=== PATIENT | male | born 1970 ===

== ENCOUNTER 2017-02-18 00:08 | Emergency (ER) | payer OTHER ==
--- NOTE | 2017-02-18 00:29 | C.PDOC ---
History Of Present Illness Patient presents to the emergency room with complaints of a prolonged erection after being injected into the corpi by Dr. Alvarado around 2pm today. Patient reports that the erection has not subsided and was sent to the ER by Dr. Alvarado. Patient denies any other complaints. Time Seen by Provider: 02/18/17 00:25 Chief Complaint (Nursing): Male Genitourinary History Per: Patient History/Exam Limitations: no limitations Onset/Duration Of Symptoms: Hrs (9) Current Symptoms Are (Timing): Still Present Severity: Moderate Pain Scale Rating Of: 5 Quality Of Discomfort: Other (Discomfort) Associated Symptoms: denies: Fever, Nausea, Vomiting Alleviating Factors: None Recent travel outside of the [place]: No Past Medical History Reviewed: Historical Data, Nursing Documentation, Vital Signs Vital Signs: Last Vital Signs Temp 98.0 F 02/18/17 00:12 Pulse 92 H 02/18/17 00:12 Resp 16 02/18/17 00:12 BP 173/103 H 02/18/17 00:12 Pulse Ox 98 02/18/17 01:15 - Medical History PMH: HTN, End Stage Renal Disease Family History: States: Unknown Family Hx - Social History Hx Alcohol Use: No Hx Substance Use: No - Immunization History Hx Tetanus Toxoid Vaccination: No Hx Influenza Vaccination: No Hx Pneumococcal Vaccination: No Review Of Systems Constitutional: Negative for: Fever, Chills Gastrointestinal: Negative for: Nausea, Vomiting, Diarrhea Musculoskeletal: Positive for: Other (Prolonged erection) Physical Exam - Physical Exam Appears: Non-toxic Skin: Warm, Dry, No Rash Male Genital: Other (Penis is erect.) Extremity: Normal ROM, No Tenderness Neurological/Psych: Oriented x3, Normal Speech ED Course And Treatment O2 Sat by Pulse Oximetry: 98 Pulse Ox Interpretation: Normal Progress Note: Case discussed with Dr. Danny Alvarado, who will evaluate the patient in the ER. ice pack applied as well as pain control. pt was injected by dr alvarado Reevaluation Time: 02:35 Reassessment Condition: Improved Disposition Counseled Patient/Family Regarding: Studies Performed, Diagnosis, Need For Followup - Disposition Referrals: Danny Alvarado MD [Staff Provider] - Disposition: HOME/ ROUTINE Disposition Time: 00:29 Condition: FAIR Instructions: Priapism (ED) - Clinical Impression Clinical Impression: Priapism, drug-induced - Scribe Statement The provider has reviewed the documentation as recorded by the Scribe Irineo Rodriguez Provider Periibe Attestation: All medical record entries made by the Periibe were at my direction and personally dictated by me. I have reviewed the chart and agree that the record accurately reflects my personal performance of the history, physical exam, medical decision making, and the department course for this patient. I have also personally directed, reviewed, and agree with the discharge instructions and disposition.
[2017-02-18] MEDS ORDERED: Oxycodone/Acetaminophen 5/325 mg Tab PO STA (00:49)
[2017-02-18] MEDS ORDERED: Oxycodone/Acetaminophen 5/325 mg Tab ONE (00:51)
[2017-02-18] MEDS ORDERED: Morphine 4 MG/ML VIAL ONE (01:29)
[2017-02-18] MEDS ORDERED: Phenylephrine 30 MG in Dextrose 5% In Water 250 ML IV PRN (01:34)
[2017-02-18] MEDS ORDERED: PHENYLEPHRINE IV ONE ×2 (01:45→02:00)
[2017-02-18] MEDS ORDERED: SODIUM CHLORIDE 0.9% IV ONE ×2 (01:45→02:00)
[2017-02-18 02:45] VITALS: RESP 20
[2017-02-18 02:46] VITALS: BP 154/101; PULSE 90; TEMP 98.1; O2SAT 99
--- NOTE | 2017-03-03 08:55 | OP ---
PROCEDURE DATE: 02/18/2017 BEDSIDE OPERATIVE PROCEDURE The patient is a very pleasant gentleman who presents here to the Emergency Room at my recommendation and instructions. See the separately dictated consult note. Previously, he had received prostaglandin from me. He actually received something called ne Salcedo ch is prostaglandin, papaverine and phentolamine, in the standard dose which I give to several people , but I give the patients instructions that if they do not detumescence in a timely fashion that they must call me, which he has done now. He has a painful erection. I have instructed the patient to p resent to the ER. In the ER, the patient has a confirmed erection. After discussing options with th e patient, we were doing the procedure. PREOPERATIVE DIAGNOSIS: Priapism. POSTOPERATIVE DIAGNOSIS: Priapism. PROCEDURE: Detumescence procedure with injection of phenylephrine. COMPLICATIONS: None. The patient is being monitored here in the Emergency Room. We explained to the patient carefully wha t I was planning to do. I used the largest for needle that is available here, which happens to be 18 gauge Angiocath. I inje cted at the base of the penis and the corpora. I removed blood with a syringe. After the initial ne edle, of course, we used just a plastic Angiocath. We drained out the fluid. We use phenylephrine b etween 250-500 mcg until the patient is detumesced. The patient tolerates this procedure well without complication. I observed the patient for a few min utes afterwards to make sure that it did not return. We wrapped the penis with a dressing. The patient tolerated the procedure without complication. ADDENDUM #1: He is going to go home on Motrin. ADDENDUM #2: I subsequently spoke to the patient. He had no further difficulty. Geoff Alvarado MD cc: [id number] TT: 03/03/2017 08:55:15 cj
--- NOTE | 2017-03-03 09:14 | CON ---
DATE: 02/18/2017 SUBJECTIVE: The patient is a very pleasant gentleman I know well. In fact, I saw him earlier. We had discussed a medication called TriMix. TriMix is used for erectile dysfunction. It includes pr ostaglandin, papaverine, and phentolamine. The patient was given that medication. Still has a persistent erection. On my instruction the patient was sent here to the Emergency Room for further evaluation and treatmen t. In fact, see the separately dictated procedure note. Where I injected phenylephrine to detumesce the patient. The patient's baseline has erectile dysfunction. PAST MEDICAL AND SURGICAL HISTORY: As listed on the chart. From a urology standpoint, no other interim changes. PHYSICAL EXAMINATION: GENERAL: Well-nourished male in no apparent distress. VITAL SIGNS: Within normal limits. GENITOURINARY: The glans penis is not quite as firm as the rest of the corpora. There is a firm erection throughout. There are no other testicular masses or the like. Other than the indicated above history where the patient received prostaglandin, no other history is significant here. See the separately dictated note where we did a detumescence we injected phenylephrine until the graham ent was detumesced properly. The patient tolerated the procedure well. UROLOGY DIAGNOSIS: Priapism. The patient is currently clinically detumesced. He will be discharged home in a timely fashion. See the separately dictated procedure. Geoff Alvarado MD cc: [id number] TT: 03/03/2017 08:23:14 Confirmation # [id number] Dictation # [id number] pricila
== END 2017-02-18 02:52 | disposition home or self-care (01) ==
LOC: C.ER 00:08
DX: N48.30 Priapism, unspecified (principal)
CPT/HCPCS: 54220; 96372; 96374; 96376; 99284; J2270; J2370

== ENCOUNTER 2017-04-03 12:07 | Emergency (ER) | payer OTHER ==
[2017-04-03 12:16] VITALS: TEMP 97.9; O2SAT 100
[2017-04-03] MEDS ORDERED: Oxycodone/Acetaminophen 5/325 mg Tab PO STA (12:36)
--- NOTE | 2017-04-03 12:36 | C.PDOC ---
History Of Present Illness A 46 y/o male presents to the ER c/o prolonged erection since midnight. Pt notes injecting Viagra and had intercourse, but the erection prolonged afterwards. Pt denies penile discharge or bleeding, dysuria, nausea, vomiting, or any other complaints. Pt has a history of a similar episode that occurred 2 months prior and was evaluated by Dr. Alvarado. Time Seen by Provider: 04/03/17 12:29 Chief Complaint (Nursing): Male Genitourinary History Per: Patient History/Exam Limitations: no limitations Onset/Duration Of Symptoms: Hrs Current Symptoms Are (Timing): Still Present Severity: Mild Associated Symptoms: denies: Nausea, Vomiting Recent travel outside of the [place]: No Additional History Per: Patient Past Medical History Reviewed: Historical Data, Nursing Documentation, Vital Signs Vital Signs: Last Vital Signs Temp 97.9 F 04/03/17 12:11 Pulse 84 04/03/17 15:20 Resp 16 04/03/17 15:20 BP 200/96 H 04/03/17 15:20 Pulse Ox 100 04/03/17 16:56 - Medical History PMH: HTN, End Stage Renal Disease (MWF) Family History: States: Unknown Family Hx - Social History Hx Alcohol Use: No Hx Substance Use: No - Immunization History Hx Tetanus Toxoid Vaccination: No Hx Influenza Vaccination: No Hx Pneumococcal Vaccination: No Review Of Systems Except As Marked, All Systems Reviewed And Found Negative. Gastrointestinal: Negative for: Nausea, Vomiting Genitourinary: Positive for: Other (Penile erection). Negative for: Dysuria, Hematuria, Penile Discharge Physical Exam - Physical Exam Appears: Well, Non-toxic, No Acute Distress Skin: Warm, Dry Head: Atraumatic, Normacephalic Eye(s): bilateral: Normal Inspection, EOMI Nose: Normal Oral Mucosa: Moist Chest: Symmetrical Cardiovascular: Rhythm Regular, No Murmur Respiratory: Normal Breath Sounds, No Rales, No Rhonchi, No Wheezing Male Genital: No Scrotal Swelling, Other (Penile erection) Neurological/Psych: Oriented x3, Normal Speech, Other (No focal deficit) ED Course And Treatment O2 Sat by Pulse Oximetry: 100 (RA) Pulse Ox Interpretation: Normal Progress Note: Impression: 46 y/o c/o prolonged erection since midnight. Plans : OxyCODONE, Ice to area. Dr. alvarado was called at 12:45. Pt was seen and evaluated by Dr Alvarado at 330 pm who preformed drainage and injection. Patient is resting comfortably, and is in no acute distress. Patient was instructed to follow up with PMD in 1-2 days for further evaluation. Disposition - Disposition Referrals: Danny Alvarado MD [Staff Provider] - Disposition: HOME/ ROUTINE Disposition Time: 16:53 Condition: STABLE Additional Instructions: Follow up with Dr Alvarado in 1-2 days. Return to ER if symptoms persist or worsen. Prescriptions: Ibuprofen [Motrin] 600 mg PO Q6 PRN #20 tab PRN Reason: Pain, Mild (1-3) Instructions: Priapism (ED) - Clinical Impression Clinical Impression: Priapism, drug-induced - Scribe Statement The provider has reviewed the documentation as recorded by the Scribe Davy witt All medical record entries made by the Scribe were at my direction and personally dictated by me. I have reviewed the chart and agree that the record accurately reflects my personal performance of the history, physical exam, medical decision making, and the department course for this patient. I have also personally directed, reviewed, and agree with the discharge instructions and disposition.
[2017-04-03] MEDS ORDERED: Oxycodone/Acetaminophen 5/325 mg Tab ONE (12:44)
[2017-04-03 15:20] VITALS: BP 200/96; PULSE 84; RESP 16
[2017-04-03] MEDS ORDERED: Phenylephrine 30 MG in Sodium Chloride 0.9% 250 ML IV PRN (15:37)
[2017-04-03] MEDS ORDERED: PHENYLEPHRINE IR ONE (16:00)
[2017-04-03] MEDS ORDERED: SODIUM CHLORIDE 0.9% IR ONE (16:00)
== END 2017-04-03 17:08 | disposition home or self-care (01) ==
LOC: C.ER 12:07
DX: N48.33 Priapism, drug-induced (principal); T46.7X5A Adverse effect of peripheral vasodilators, initial encounter; Y92.9 Unspecified place or not applicable

== ENCOUNTER 2017-04-20 09:27 | Observation (INO) | payer OTHER ==
[2017-04-20 09:43] VITALS: BMI 28.1
--- NOTE | 2017-04-20 10:20 | C.PDOC ---
History Of Present Illness 46 y/o male currently on dialysis presents to ED with complaints of Penis Erection since yesterday. Patient states erection occurred while having dialysis done yesterday around 12pm. Similar symptoms occurred 1 month ago and was treated by Dr. Danny Alvarado with an injection and there was full recovery. No other complaints at this time. Time Seen by Provider: 04/20/17 10:08 Chief Complaint (Nursing): Male Genitourinary History Per: Patient History/Exam Limitations: no limitations Onset/Duration Of Symptoms: Days Current Symptoms Are (Timing): Still Present Quality Of Discomfort: "Pain" Past Medical History Reviewed: Historical Data, Nursing Documentation, Vital Signs Vital Signs: Last Vital Signs Temp 98.3 F 04/20/17 12:20 Pulse 76 04/20/17 12:20 Resp 18 04/20/17 12:20 BP 176/88 H 04/20/17 12:20 Pulse Ox 99 04/20/17 12:20 - Medical History PMH: HTN, End Stage Renal Disease (MWF) Family History: States: Unknown Family Hx - Social History Hx Alcohol Use: No Hx Substance Use: No - Immunization History Hx Tetanus Toxoid Vaccination: No Hx Influenza Vaccination: No Hx Pneumococcal Vaccination: No Review Of Systems Except As Marked, All Systems Reviewed And Found Negative. Constitutional: Negative for: Fever, Chills Cardiovascular: Negative for: Chest Pain Respiratory: Negative for: Shortness of Breath Gastrointestinal: Negative for: Nausea, Vomiting, Diarrhea Genitourinary: Positive for: Penile Pain. Negative for: Dysuria Neurological: Negative for: Weakness Physical Exam - Physical Exam Appears: Non-toxic, No Acute Distress Skin: Normal Color, Warm Head: Atraumatic, Normacephalic Oral Mucosa: Moist Cardiovascular: Rhythm Regular Respiratory: No Rales, No Rhonchi, No Wheezing Gastrointestinal/Abdominal: Soft, No Tenderness, No Guarding, No Rebound Neurological/Psych: Oriented x3, Normal Speech ED Course And Treatment O2 Sat by Pulse Oximetry: 100 (RA) Pulse Ox Interpretation: Normal Medical Decision Making Medical Decision Making: spoke with Dr. Kym Alvarado, he will come and see the patient later this afternoon. ED OBSERVATION Discharge: Yes Date of observation admission: 04/20/17 Time of observation admission: 10:10 - Observation admission statement Patient is being placed in observation because:: Patient with priaprism, pending consult. 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 MD/DO has examined the patient and agrees with the treatment plan. - Scribe Statement The provider has reviewed the documentation as recorded by the Periibkym Marcelo All medical record entries made by the Abdifatah were at my direction and personally dictated by me. I have reviewed the chart and agree that the record accurately reflects my personal performance of the history, physical exam, medical decision making, and the department course for this patient. I have also personally directed, reviewed, and agree with the discharge instructions and disposition.
[2017-04-20] MEDS ORDERED: Morphine 4 MG/ML VIAL ONE (12:14)
[2017-04-20 12:22] VITALS: RESP 18
[2017-04-20] MEDS ORDERED: Phenylephrine 1 MG in Sodium Chloride 0.9% 10 ML IV ONE (12:45)
[2017-04-20 15:22] VITALS: BP 182/77; PULSE 91; TEMP 97.6; O2SAT 98
== END 2017-04-20 15:10 | disposition home or self-care (01) ==
LOC: C.ER 09:27 → C.9OBSV 12:13
PROVIDERS: ADMIT Emergency Medicine; ATTEND Emergency Medicine
DX: N48.39 Other priapism (principal); I12.0 Hypertensive chronic kidney disease with stage 5 chronic kidney disease or end stage renal disease; N18.6 End stage renal disease; Z99.2 Dependence on renal dialysis
CPT/HCPCS: 96374; G0378; J2370

== ENCOUNTER 2017-04-21 12:09 | Observation (INO) | payer OTHER ==
[2017-04-21 12:09] VITALS: BMI 28.1
--- NOTE | 2017-04-21 13:06 | C.PDOC ---
History Of Present Illness 46 y/o male on hemodialysis, hx of priapism presents to the emergency department with complains of erection lasting several hours since last night. Pt was seen here yesterday with similar symptoms, evaluated by Dr Barney. Pt states symptoms resolved but returned last night. Pt has been applying ice without relief. Denies any other complaints at this time. Time Seen by Provider: 04/21/17 12:27 Chief Complaint (Nursing): Male Genitourinary History Per: Patient History/Exam Limitations: no limitations Onset/Duration Of Symptoms: Hrs Current Symptoms Are (Timing): Still Present Severity: Moderate Associated Symptoms: denies: Urinary Symptoms Alleviating Factors: None Recent travel outside of the [place]: No Past Medical History Reviewed: Historical Data, Nursing Documentation, Vital Signs Vital Signs: Last Vital Signs Temp 97.5 F L 04/21/17 18:17 Pulse 98 H 04/21/17 18:17 Resp 16 04/21/17 18:17 BP 175/92 H 04/21/17 18:17 Pulse Ox 100 04/21/17 18:17 - Medical History PMH: HTN, End Stage Renal Disease (MWF) Family History: States: Unknown Family Hx - Social History Hx Alcohol Use: No Hx Substance Use: No - Immunization History Hx Tetanus Toxoid Vaccination: No Hx Influenza Vaccination: No Hx Pneumococcal Vaccination: No Review Of Systems Except As Marked, All Systems Reviewed And Found Negative. Constitutional: Negative for: Fever Genitourinary: Positive for: Other (prolonged erection) Physical Exam - Physical Exam Appears: Non-toxic, No Acute Distress Skin: Warm, Dry, No Rash Head: Atraumatic, Normacephalic Neck: Normal, Normal ROM, Supple Chest: Symmetrical Cardiovascular: Rhythm Regular, No Murmur Respiratory: Normal Breath Sounds, No Rales, No Rhonchi, No Wheezing Gastrointestinal/Abdominal: Normal Exam, Soft, No Tenderness Male Genital: No Testicular Tenderness, No Testicular Swelling, Other ((+) erection. No erythema ot tenderness) Extremity: Normal ROM, Other (AV fistula to left arm, good thrill) Extremity: Bilateral: Atraumatic Neurological/Psych: Oriented x3, Normal Speech ED Course And Treatment O2 Sat by Pulse Oximetry: 97 (room air) Pulse Ox Interpretation: Normal Medical Decision Making Medical Decision Makin: Paged Dr Barney [phone]: The case spoke to Dr Barney, who states to order the phenylephrine Inj and will be in to see the patient. Phenyelphrine ordered and pending urology consult. 1500, call placed to Dr. Valentino Alvarado pending urology consult. 1630, fourth call placed and Dr. Alvarado is aware and states he is on way to see the patient. 1730, Christiano is present and has drained the priaprism with relief. Dr. Alvarado states to prescribe Sudaphed 30mg TID and pain medications and will follow up with the patient outpatient. 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 - Scribe Statement The provider has reviewed the documentation as recorded by the Scribvalentino Marcum All medical record entries made by the Abdifatah were at my direction and personally dictated by me. I have reviewed the chart and agree that the record accurately reflects my personal performance of the history, physical exam, medical decision making, and the department course for this patient. I have also personally directed, reviewed, and agree with the discharge instructions and disposition.
[2017-04-21] MEDS ORDERED: Phenylephrine 30 MG in Dextrose 5% In Water 250 ML IV PRN (15:44)
[2017-04-21 17:28] VITALS: RESP 16
[2017-04-21 18:18] VITALS: BP 175/92; PULSE 98; TEMP 97.5
[2017-04-21 18:26] VITALS: O2SAT 97
== END 2017-04-21 17:58 | disposition home or self-care (01) ==
LOC: C.ER 12:09 → C.9OBSV 16:31
PROVIDERS: ADMIT Emergency Medicine; ATTEND Emergency Medicine
DX: N48.30 Priapism, unspecified (principal); T50.905D Adverse effect of unspecified drugs, medicaments and biological substances, subsequent encounter; I12.0 Hypertensive chronic kidney disease with stage 5 chronic kidney disease or end stage renal disease; N18.6 End stage renal disease; Z99.2 Dependence on renal dialysis
CPT/HCPCS: 96374; 99285; G0378; J2270